=== PATIENT | male | born 1975 | race Caucasian/White ===

== ENCOUNTER 2018-12-20 10:49 | Emergency (ER) | payer OTHER ==
[~2018-12-20] VITALS: Ht 172.7 cm; Wt 95.3 kg
--- NOTE | 2018-12-20 11:13 | NUR ---
PT IS IN ROOM #2B. DR JUAREZ EVALUATED THE PT.
--- NOTE | 2018-12-20 11:52 | NUR ---
PT WAS D/C'd TO HOME. D/C INSTRUCTIONS GIVEN TO THE PT.
[2018-12-20 11:53] VITALS: BP 132/81
== END 2018-12-20 11:53 | disposition home or self-care (01) ==
LOC: ER 10:49
DX: S70.02XA Contusion of left hip, initial encounter (principal); S50.11XA Contusion of right forearm, initial encounter; S39.012A Strain of muscle, fascia and tendon of lower back, initial encounter; K21.9 Gastro-esophageal reflux disease without esophagitis; V49.9XXA Car occupant (driver) (passenger) injured in unspecified traffic accident, initial encounter; Y93.89 Activity, other specified; Y92.89 Other specified places as the place of occurrence of the external cause; Y99.8 Other external cause status
CPT/HCPCS: 72100; 73090; 73502; A4663